=== PATIENT | male | born 1995 | race Two or more races ===

== ENCOUNTER 2019-03-25 18:50 | Emergency (ER) | payer SELFPAY ==
[~2019-03-25] VITALS: Ht 165.1 cm; Wt 68.2 kg
[2019-03-25 18:53] VITALS: BP 141/86
== END 2019-03-25 19:20 | disposition left against medical advice (07) ==
LOC: EMS 18:51
DX: R06.00 Dyspnea, unspecified (principal); Z53.21 Procedure and treatment not carried out due to patient leaving prior to being seen by health care provider